=== PATIENT | male | born 1975 | race Caucasian/White ===

== ENCOUNTER 2020-10-21 20:37 | Emergency (ER) | payer MEDICAID ==
[~2020-10-21] VITALS: Ht 180.3 cm; Wt 101.7 kg
[2020-10-21 20:53] VITALS: BP 148/87
--- NOTE | 2020-10-21 21:06 | NUR ---
Pt sent over from [facility] for clearance for covid. Pt has had congestion and donald, facility wants him covid tested. No fever, no loose stool or vomiting.
--- NOTE | 2020-10-21 21:13 | NUR ---
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 Pt has had mild donald and congestion for several days, which triggered the longterm to send him to ER for covid clearance. Pt states he would not normally seek tx for these sx as they are mild but he was forced to come here for covid test. He has no fever, no n/v, no loss smell or taste. Only slight donald and nasal congestion.
[2020-10-21] MEDS ORDERED: IBUPROFEN 600 MG TABLET ONE (22:00)
--- NOTE | 2020-10-21 22:05 | NUR ---
Verbal order Dr aamir boo 600mg po now. Pt dc ambulatory with instruct, pt hernandez tovar walked to lab by this nurse. Pt verbalizes understanding of instruct and f/u.
[2020-10-21] MEDS ORDERED: IBUPROFEN 200 MG TABLET PO ONE (22:30)
[2020-10-21] MEDS ORDERED: IBUPROFEN 600 MG TABLET PO ONE (22:30)
== END 2020-10-21 22:11 | disposition home or self-care (01) ==
LOC: ED 21:45
DX: J00 Acute nasopharyngitis [common cold] (principal); Z20.822 Contact with and (suspected) exposure to COVID-19; R51.9 Headache, unspecified; R09.81 Nasal congestion
CPT/HCPCS: 99283; U0003

== ENCOUNTER 2020-10-30 16:48 | Emergency (ER) | payer MEDICAID ==
[~2020-10-30] VITALS: Ht 180.3 cm; Wt 101.4 kg
[2020-10-30 17:03] VITALS: BP 124/73
--- NOTE | 2020-10-30 17:58 | NUR ---
SPA DIRECTOR/FINANCE: PT TO ROOM FROM LOBBY
--- NOTE | 2020-10-30 18:16 | NUR ---
THIS IS A 45 YEAR OLD MALE WHO C/O OF LEFT HEAL PAIN, CRASHED SKATEBOARDING.
== END 2020-10-30 19:12 | disposition home or self-care (01) ==
LOC: ED 19:00
DX: S90.32XA Contusion of left foot, initial encounter (principal); X58.XXXA Exposure to other specified factors, initial encounter; Y93.89 Activity, other specified; Y92.89 Other specified places as the place of occurrence of the external cause; Y99.8 Other external cause status
CPT/HCPCS: 99283